=== PATIENT | female | born 1995 | race Caucasian/White ===

== ENCOUNTER 2016-08-03 14:58 | Emergency (ER) | payer BC ==
[2016-08-03 15:27] VITALS: BP 130/88
--- NOTE | 2016-08-03 15:47 | UC ---
Back Pain HPI - HPI Summary HPI Summary: FELL OFF A HORSE YESTERDAY 2 TIMES. THE SECOND TIME WAS VERY PAINFUL. FELT NUMB FOR ABOUT 20 MINUTES. NOW HAS SEVERE PAIN IN TAILBONE. HURTS TO SIT, MOVE. NO SADDLE ANESTHESIA. NO LOSS OF BOWEL OR BLADDER CONTROL. - History of Current Complaint Chief Complaint: UCBackPain Stated Complaint: TAILBONE INJURY Time Seen by Provider: 08/03/16 15:38 Hx Obtained From: Patient Hx Last Menstrual Period: 07/17/16 Onset/Duration: Sudden Onset, Lasting Hours, Still Present Timing: Constant Severity Initially: Severe Severity Currently: Severe Pain Intensity: 10 Pain Scale Used: 0-10 Numeric Back Pain: Is Discrete @ - TAILBONE Character: Throbbing Aggravating: Movement - SITTING Alleviating: Rest Associated Signs And Symptoms: Positive: Numbness - RESOLVED, Pain with Weight Bearing. Negative: Swelling, Redness, Bruising, Fever, Weakness, Bladder Incontinence, Bowel Incontinence - Allergies/Home Medications Allergies/Adverse Reactions: Allergies Allergy/AdvReac Type Severity Reaction Status Date / Time No Known Allergies Allergy Verified 12/08/15 13:15 PMH/Surg Hx/FS Hx/Imm Hx Endocrine History Of: Denies: Diabetes, Thyroid Disease Cardiovascular History Of: Denies: Cardiac Disorders, Hypertension, Congestive Heart Failure Respiratory History Of: Reports: Asthma - YOUNG CHILD NOW PROBLEMS SINCE 4 YO Denies: COPD GI/ History Of: Denies: Ulcer, Renal Disease Other History Of: Negative For: Anticoagulant Therapy - Surgical History Surgical History: Yes Surgery Procedure, Year, and Place: T&A, APPENDECTOMY, WRIST FRACTURE x3; tubes in ears, oral surgery - Family History Known Family History: Positive: Hypertension, Diabetes - Social History Alcohol Use: None Substance Use Type: None Smoking Status (MU): Never Smoked Tobacco - Immunization History Most Recent Influenza Vaccination: 2014 Most Recent Tetanus Shot: up to date Most Recent Pneumonia Vaccination: never Vaccination Up to Date: Yes Review of Systems Constitutional: Negative Skin: Negative Respiratory: Negative Cardiovascular: Negative Gastrointestinal: Negative Musculoskeletal: Arthralgia, Myalgia All Other Systems Reviewed And Are Negative: Yes Physical Exam Triage Information Reviewed: Yes Appearance: Well-Appearing, No Pain Distress, Well-Nourished Vital Signs: Initial Vital Signs Temp 96.6 F 08/03/16 15:17 Pulse 98 08/03/16 15:17 Resp 18 08/03/16 15:17 BP 130/88 08/03/16 15:17 Pulse Ox 100 08/03/16 15:17 Vital Signs Reviewed: Yes Eyes: Positive: Conjunctiva Clear ENT: Positive: Hearing grossly normal Neck: Positive: Supple Respiratory: Positive: No respiratory distress, No accessory muscle use Cardiovascular: Positive: Pulses Normal Abdomen Description: Positive: Soft Musculoskeletal: Positive: No Edema, Other: - EXQUISITELY TTP TAILBONE Neurological: Positive: Alert Psychological: Positive: Age Appropriate Behavior Skin: Negative: rashes Diagnostics - Radiology SACRUM/COCCYX XRAY Xray Interpretation: No Acute Changes Radiology Interpretation Completed By: Radiologist Back Pain Course/Dx - Differential Dx/Diagnosis Provider Diagnoses: COCCYX CONTUSION Discharge - Discharge Plan Condition: Stable Disposition: HOME Prescriptions: Acetaminop/Codeine 30 MG TAB* [Tylenol/Codeine 30 MG TAB*] 1 - 2 tab PO Q6H PRN #20 tab MDD 8 PRN Reason: Pain Naproxen [Naproxen EC] 500 mg PO BID PRN #30 tab PRN Reason: Pain Patient Education Materials: Coccyx Injury (ED) Forms: *Work Release Referrals: Xavier Meredith MD [Primary Care Provider] - If Needed Additional Instructions: XRAY TODAY UNREMARKABLE. AVOID PROLONGED SITTING AND DO NOT SIT ON HARD SURFACES. SEEK FOLLOW-UP IF YOU ARE NOT IMPROVING OVER THE NEXT 1-2 WEEKS.
--- NOTE | 2016-08-03 16:08 | RAD ---
Indication: Buttock pain one day after falling off a horse Comparison: None. Technique: AP and lateral views sacrum and coccyx. Report: The visualized bones of the sacrum and coccyx are well-corticated and properly aligned. The joint spaces are adequately maintained. There is no radiographically apparent acute fracture or dislocation. IMPRESSION: Normal radiograph of the sacrum and coccyx. If the patient's symptoms persist, follow-up imaging is recommended.
== END 2016-08-03 17:06 | disposition home or self-care (01) ==
LOC: UCEAST 14:58
DX: S30.0XXA Contusion of lower back and pelvis, initial encounter (principal); V80.010A Animal-rider injured by fall from or being thrown from horse in noncollision accident, initial encounter; Y93.52 Activity, horseback riding; Y92.9 Unspecified place or not applicable
CPT/HCPCS: 72220; 99212; G0463

== ENCOUNTER 2017-05-17 07:17 | Emergency (ER) | payer SELFPAY ==
[2017-05-17 07:34] VITALS: BP 162/91
[2017-05-17] MEDS ORDERED: Ibuprofen TAB* 600 MG PO ONE (07:38)
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
== END 2017-05-17 08:28 | disposition home or self-care (01) ==
LOC: UCEAST 07:17
DX: S80.02XA Contusion of left knee, initial encounter (principal); V43.52XA Car driver injured in collision with other type car in traffic accident, initial encounter; Y92.488 Other paved roadways as the place of occurrence of the external cause; Z88.5 Allergy status to narcotic agent
CPT/HCPCS: 99212; A9270-GY; G0463

== ENCOUNTER 2017-06-12 13:12 | Emergency (ER) | payer SELFPAY ==
--- OUTSIDE RECORDS SUMMARY | 2017-06-12 16:16 | XMS REPORT ---
:1995 External Reference #:[id number] Author Organization [facility] Address [address] [place] [address] Phone [phone] Care Team Providers Name Role Phone Xavier Meredith M.D[facility] 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 to 6 hours as needed Vital Signs Date Vital Result Comment 05/26/2017 BP Systolic 128 mmHg BP Diastolic 70 mmHg Height 65 inches 5'5" Weight 198.00 lb BMI (Body Mass Index) 32.9 kg/m2 Heart Rate 97 /min Respiratory Rate 18 /min Results Description No Information Procedures Description No Information Encounters Type Date Location Provider CPT E/M Dx Office Visit 05/26/2017 3:00p [place] [address] [id number] Plan of Care 05/26/2017 - [facility] [id number] Pain in left kneeComments:-REST ICE ELEVATE WEAR KNEE BRACE, PT ALREADY HAS ONE-ORTHO REFERRAL -POSSIBLE MENISCUS TEAR VS SPRAIN/STRAINReferral:Christiana Faulkner, Orthopedic/Phys TherR51 HeadacheNew Medication:Esgic 50-325-40 mgComments:NO ABNORMAL NEURO FINDINGS ON EXAMTYLENOL/MOTRIN PRNRESTAVOID ANY IDENTIFIED TRIGGERS, IF ANYREPORT ANY WORSENING OR NEW SXS NO CONCERNS FOR CONCUSSION ALTHOUGH POST-CONCUSSION SYNDROME MAY BE A POSSIBILITYTREAT CONSERVATIVELY FOR NOW ED PRECAUTIONS DISCUSSED
[2017-06-12 16:17] VITALS: BP 136/78
[2017-06-12] MEDS ORDERED: Lidocaine 2% W/EPI 1:100,000* 20 ML MDV INJ ONE (17:01)
[2017-06-12] MEDS ORDERED: Lidocaine 1% MPF wEPI 200,000* 30 ML SDV INJ ONE (17:08)
[2017-06-12] MEDS ORDERED: Lidocaine 1% MPF wEPI 200,000* 30 ML SDV ONE (17:10)
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
== END 2017-06-12 18:14 | disposition home or self-care (01) ==
LOC: UCEAST 13:12
DX: M79.5 Residual foreign body in soft tissue (principal); Z88.5 Allergy status to narcotic agent
CPT/HCPCS: 10120; 99211; G0463; J2001